=== PATIENT | male | born 1955 | race Caucasian/White ===

== ENCOUNTER 2020-04-24 10:19 | Outpatient (REF) | payer OTHER, SELFPAY ==
[2020-04-24 14:43] LABS: Alanine Aminotransferase 35 U/L (0-40); Anion Gap 15 (12-20); Blood Urea Nitrogen 31 mg/dL (9-16); Carbon Dioxide 25 mmol/L (22-29); Chloride 106 mmol/L (96-108); Estimated Glomerular Filt Rate 52; Potassium 4.6 mmol/L (3.3-5.1); Sodium 141 mmol/L (135-145)
== END 2020-04-24 10:20 | disposition home or self-care (01) ==
LOC: HO.10HDL 10:19
PROVIDERS: Visit Provider Family Medicine
DX: I10 Essential (primary) hypertension (principal)
CPT/HCPCS: 36415; 80051; 82550; 82565; 84460; 84520

== ENCOUNTER 2021-01-28 09:24 | Outpatient (REF) | payer OTHER, SELFPAY ==
[2021-01-28 10:55] LABS: Alanine Aminotransferase 42 U/L (0-40); Anion Gap 12 (12-20); Blood Urea Nitrogen 25 mg/dL (9-16); Carbon Dioxide 24 mmol/L (22-29); Chloride 106 mmol/L (96-108); Estimated Glomerular Filt Rate 55; Potassium 4.2 mmol/L (3.3-5.1); Sodium 138 mmol/L (135-145)
[2021-01-28 11:05] LABS: Prostate Specific Antigen Scr 3.53 ng/mL (<0.05-4.0)
== END 2021-01-28 09:25 | disposition home or self-care (01) ==
LOC: HO.10HDL 09:24
PROVIDERS: Student in an Organized Health Care Education/Training Program; Visit Provider Family Medicine
DX: Z12.5 Encounter for screening for malignant neoplasm of prostate (principal); I10 Essential (primary) hypertension; E78.00 Pure hypercholesterolemia, unspecified; R35.1 Nocturia; Z79.899 Other long term (current) drug therapy
CPT/HCPCS: 36415; 80051; 82550; 82565; 84153; 84460; 84520

== ENCOUNTER 2021-08-08 08:10 | Outpatient (REF) | payer OTHER, SELFPAY ==
[2021-08-08 09:07] LABS: Anion Gap 12 (12-20); Blood Urea Nitrogen 32 mg/dL (9-16); Carbon Dioxide 23 mmol/L (22-29); Chloride 105 mmol/L (96-108); Estimated Glomerular Filt Rate 45; Potassium 4.4 mmol/L (3.3-5.1); Sodium 136 mmol/L (135-145)
== END 2021-08-08 08:11 | disposition home or self-care (01) ==
LOC: HO.LAB 08:10
PROVIDERS: PCP Family Medicine; Visit Provider Family Medicine
DX: I10 Essential (primary) hypertension (principal)
CPT/HCPCS: 36415; 80051; 82565; 84520

== ENCOUNTER 2021-11-19 08:56 | Outpatient (REF) | payer OTHER, SELFPAY ==
[2021-11-19 10:46] LABS: Alanine Aminotransferase 35 U/L (0-40); Albumin Level 4.4 g/dL (3.5-5.0); Alkaline Phosphatase 67 U/L (39-117); Aspartate Amino Transferase 21 U/L (5-37); Bilirubin Direct 0.3 mg/dL (0.0-0.5); Bilirubin Total 0.7 mg/dL (0.0-1.0); Blood Urea Nitrogen 27 mg/dL (9-16); Estimated Glomerular Filt Rate 54; Glucose Fasting 118 mg/dL (60-99); Total Protein 8.1 g/dL (6.5-8.0)
== END 2021-11-19 08:57 | disposition home or self-care (01) ==
LOC: HO.10HDL 08:56
PROVIDERS: Visit Provider Family Medicine
DX: I10 Essential (primary) hypertension (principal); E78.00 Pure hypercholesterolemia, unspecified; R73.9 Hyperglycemia, unspecified; Z79.899 Other long term (current) drug therapy
CPT/HCPCS: 36415; 80076; 82550; 82565; 82947; 84520

== ENCOUNTER 2022-06-17 09:56 | Outpatient (REF) | payer MEDICARE, OTHER, SELFPAY ==
[2022-06-17 14:07] LABS: Estimated Average Glucose 120 mg/dL; Hemoglobin A1c % 5.8 %
[2022-06-17 14:25] LABS: Alanine Aminotransferase 32 U/L (0-40); Anion Gap 14 (12-20); Aspartate Amino Transferase 19 U/L (5-37); Blood Urea Nitrogen 28 mg/dL (9-16); Carbon Dioxide 23 mmol/L (22-29); Chloride 108 mmol/L (96-108); Estimated Glomerular Filt Rate 45; Glucose Fasting 106 mg/dL (60-99); Potassium 4.7 mmol/L (3.3-5.1); Sodium 140 mmol/L (135-145)
== END 2022-06-17 09:57 | disposition home or self-care (01) ==
LOC: HO.10HDL 09:56
PROVIDERS: Visit Provider Family Medicine
DX: I10 Essential (primary) hypertension (principal); E78.00 Pure hypercholesterolemia, unspecified; R73.9 Hyperglycemia, unspecified; Z79.899 Other long term (current) drug therapy
CPT/HCPCS: 36415; 80051; 82550; 82565; 82947; 83036; 84450; 84460; 84520

== ENCOUNTER 2023-01-19 09:09 | Outpatient (REF) | payer MEDICARE, OTHER, SELFPAY ==
[2023-01-19 10:51] LABS: Anion Gap 12 (12-20); Blood Urea Nitrogen 25 mg/dL (9-16); Carbon Dioxide 23 mmol/L (22-29); Chloride 105 mmol/L (96-108); Estimated Glomerular Filt Rate 56; Potassium 3.8 mmol/L (3.3-5.1); Sodium 136 mmol/L (135-145)
== END 2023-01-19 09:10 | disposition home or self-care (01) ==
LOC: HO.10HDL 09:09
PROVIDERS: Visit Provider Family Medicine
DX: I10 Essential (primary) hypertension (principal)
CPT/HCPCS: 36415; 80051; 82565; 84520

== ENCOUNTER 2023-07-28 08:49 | Outpatient (REF) | payer MEDICARE, OTHER, SELFPAY ==
[2023-07-28 12:22] LABS: Alanine Aminotransferase 28 U/L (0-40); Anion Gap 15 (12-20); Aspartate Amino Transferase 16 U/L (5-37); Blood Urea Nitrogen 23 mg/dL (9-16); Carbon Dioxide 18 mmol/L (22-29); Chloride 108 mmol/L (96-108); Estimated Glomerular Filt Rate 57; Sodium 137 mmol/L (135-145)
== END 2023-07-28 08:50 | disposition home or self-care (01) ==
LOC: HO.10HDL 08:49
PROVIDERS: Visit Provider Family Medicine
DX: I10 Essential (primary) hypertension (principal); E78.00 Pure hypercholesterolemia, unspecified; Z79.02 Long term (current) use of antithrombotics/antiplatelets
CPT/HCPCS: 36415; 80051; 82550; 82565; 84450; 84460; 84520

== ENCOUNTER 2024-02-01 09:42 | Outpatient (REF) | payer MEDICARE, OTHER, SELFPAY ==
[2024-02-01 11:22] LABS: Anion Gap 12 (12-20); Blood Urea Nitrogen 25 mg/dL (9-16); Carbon Dioxide 24 mmol/L (22-29); Chloride 106 mmol/L (96-108); Estimated Glomerular Filt Rate 46; Potassium 4.3 mmol/L (3.3-5.1); Sodium 138 mmol/L (135-145)
== END 2024-02-01 09:43 | disposition home or self-care (01) ==
LOC: HO.10HDL 09:42
PROVIDERS: Visit Provider Family Medicine
DX: I10 Essential (primary) hypertension (principal)
CPT/HCPCS: 36415; 80051; 82565; 84520

== ENCOUNTER 2024-07-18 09:17 | Outpatient (REF) | payer MEDICARE, OTHER, SELFPAY ==
[2024-07-18 10:24] LABS: Alanine Aminotransferase 35 U/L (0-40); Anion Gap 13 (12-20); Aspartate Amino Transferase 24 U/L (5-37); Blood Urea Nitrogen 30 mg/dL (9-16); Carbon Dioxide 20 mmol/L (22-29); Chloride 111 mmol/L (96-108); Cholesterol 166 mg/dL (<200); Estimated Glomerular Filt Rate 47; Glucose Fasting 115 mg/dL (60-99); HDL Cholesterol 55 mg/dL (>40); LDL Cholesterol Calculated 94 mg/dL (<100); Potassium 4.1 mmol/L (3.3-5.1); Sodium 140 mmol/L (135-145); Triglycerides 86 mg/dL (<150)
== END 2024-07-18 09:18 | disposition home or self-care (01) ==
LOC: HO.10HDL 09:17
PROVIDERS: Visit Provider Family Medicine
DX: I12.9 Hypertensive chronic kidney disease with stage 1 through stage 4 chronic kidney disease, or unspecified chronic kidney disease (principal); N18.30 Chronic kidney disease, stage 3 unspecified; Z83.3 Family history of diabetes mellitus; E78.00 Pure hypercholesterolemia, unspecified; Z79.899 Other long term (current) drug therapy
CPT/HCPCS: 36415; 80051; 80061; 82550; 82565; 82947; 84450; 84460; 84520

== ENCOUNTER 2024-12-06 09:38 | Outpatient (AMB) | payer MEDICARE, OTHER, SELFPAY ==
--- NOTE | 2024-12-06 09:40 | MHC.PC.OV ---
Vital Signs 12/06/24 09:46 Height 5 ft 7 in Weight 190 lb BMI 29.8 BP 126/72 Blood Pressure Location Rt brachial Position Sitting Respiration 18 Pulse 82 Pulse Source Pulse Oximeter Temp 97.1 F Temp Source Temporal Artery Scan Pulse Oximetry (%) 96 Oxygen Delivery Method Room Air Intake Visit Reasons: 4 Month F/U / Dr Hauser Feather Shaper Required: No Accompanied by: Self / Same As Patient Allergies Penicillins Allergy (Intermediate, Verified 12/06/24 09:43) Rash Medication List - Last Reconciled 12/06/24 by David Murray MD atorvastatin 10 mg PO DAILY coenzyme Q10 (Co Q-10) 10 mg PO TID hydrochlorothiazide 12.5 mg PO DAILY lisinopril 30 mg PO DAILY nifedipine ER 30 mg PO DAILY tamsulosin mg PO Tobacco use date assessed: 12/06/24 Fall risk assessment: 1 Fall in past year Last assessed Fall Risk: 12/06/24 Dental Screening Dental Screen Date: 12/06/24 Did you have a dental visit in the last 12 months?: Yes Did you have a dental problem in the last 6 months where you did not have access to dental care?: No Was dental information given to patient?: Patient has dentist HPI HPI Comments History of Present Illness Details The patient is a 69-year-old male presenting for a wellness and chronic disease management visit. He has a history of benign prostatic hyperplasia, for which he is taking tamsulosin. This medication has been part of his routine management, and he reports good control of symptoms without any current complaints related to this condition. The patient also has essential hypertension, which was diagnosed approximately 20 years ago after he experienced vision loss, leading to the discovery of high blood pressure. Initially undiagnosed, the hypertension progressed to a severity that impaired his vision temporarily and contributed to reduced kidney function. He is currently managing his blood pressure with nifedipine, lisinopril, and hydrochlorothiazide. He reports stable blood pressure readings at home, ranging from 103 to 127 mmHg systolic, with no symptoms of dizziness or fatigue. The patient's chronic kidney disease is in stage 3A, a result of long-standing hypertension. There are no new symptoms reported, but due to the previous kidney impairment, his kidney function is being monitored closely. His last blood work in June confirmed CKD stage 3A. He has not been seeing a student ambassador since 2007, opting to manage this with his primary care physician. He has no history of surgeries. Additionally, the patient has hypercholesterolemia managed with atorvastatin 10 mg daily. There are no new concerns with cholesterol management reported. There is a family history of prostate cancer in his father, and his mother had diabetes. The patient himself denies any previous smoking history and consumes alcohol moderately, about three drinks per week. He also denied any recreational drug use and stated no known allergies. Medical History: - Benign Prostatic Hyperplasia - Essential Hypertension - Chronic Kidney Disease Stage 3A - Hypercholesterolemia - Family history of prostate cancer in the father - Undiagnosed hypertension with vision loss approximately 20 years ago Surgical History: - None reported Medications: - Tamsulosin for Benign Prostatic Hyperplasia - Nifedipine 30 mg daily for Hypertension - Lisinopril 30 mg daily for Hypertension - Hydrochlorothiazide for Hypertension - Atorvastatin 10 mg daily for Hypercholesterolemia Family History: - Prostate cancer in father - Diabetes in mother - No history of heart disease reported in the family Diagnostic Results: - Labs: Kidney function tests from June show CKD stage 3A - Colonoscopy performed in 2019 with a follow-up recommended in 2030 Social: - Lives with spouse in [place] - Alcohol consumption: Three drinks per week - No tobacco or recreational drug use - Regular home blood pressure monitoring with stable results [facility] Medical History (Updated 12/06/24 @ 09:58 by David Murray MD) BPH (benign prostatic hyperplasia) CKD (chronic kidney disease) stage 3, GFR 30-59 ml/min Hyperlipidemia Hypertension Surgical History (Updated 12/05/24 @ 16:03 by Christine Ni) History of colonoscopy (~11/23/19) Social History Housing: House Patient Tobacco Use Status: Never used Tobacco e-Cigarette/Vaping Use: Never Used service: No Current occupational status: retired Questionnaire PHQ-9 Over the last 2 weeks, how often have you been bothered by any of the following problems? 1. Little interest or pleasure in doing things: not at all 2. Feeling down, depressed, or hopeless: not at all 3. Trouble falling or staying asleep, or sleeping too much: not at all 4. Feeling tired or having little energy: not at all 5. Poor appetite or overeating: not at all 6. Feeling bad about yourself - or that you are a failure or have let yourself or your family down: not at all 7. Trouble concentrating on things, such as reading the newspaper or watching television: not at all 8. Moving or speaking so slowly that other people could have noticed. Or the opposite - being so fidgety or restless that you have been moving around a lot more than usual: not at all 9. Thoughts that you would be better off or of hurting yourself in some way: not at all Total score: 0 Depression Screening Interpretation: Negative Depression Screening Done: Yes 93011 - PHQ-9 Billing: Yes Source: Developed by Drs. Dwain Ferro, Saige Reza, Eliezer Vidal and colleagues, with an educational martina from [employer]. Thrive Questionnaire Date Thrive assessed: 12/06/24 I am a: Patient What is your living situation today?: I have a steady place to live Within the past 12 months, did the food you bought not last and you didn't have the money to get more?: Never true Within the past 12 months, did you worry whether your food would run out before you got money to buy more?: Never true Do you have trouble paying for medicines?: No Do you have trouble getting transportation to medical appointments?: No Do you have trouble paying your heating and electricity bill?: No Do you have trouble taking care of your child, family member or friend?: No Do you have trouble with day-to-day activities such as bathing, preparing meals, shopping, managing finances, etc.?: No Are you currently unemployed and looking for a job?: No Are you interested in more education?: No THRIVE Score: 0 AUDIT C Alcohol Use Questionnaire (AUDIT-C) 1. How often do you have a drink containing alcohol?: 2-3 times a week 2. How many drinks containing alcohol do you have on a typical day when you are drinking?: 1 or 2 Total Score: 3 Score Reviewed/Action Taken: Yes KENDALL-7 AMB Questionnaire KENDALL-7 Date KENDALL - 7 assessed: 12/06/24 Feeling nervous, anxious, or on edge: 0 = Not at all Not being able to stop or control worryin = Not at all Worrying too much about different things: 0 = Not at all Trouble relaxin = Not at all Being so restless that it is hard to sit still: 0 = Not at all Becoming easily annoyed or irritable: 0 = Not at all Feeling afraid as if something awful might happen: 0 = Not at all Total KENDALL-7 score (0-4 normal; 5-9 mild; 10-14 moderate; 15-21 severe): 0 Source: Developed by Drs. Dwain Ferro, Saige Reza, Eliezer Vidal and colleagues, with an educational matrina from [employer]. KENDALL-7 Assessment Billing KENDALL-7 Assessment Tool: KENDALL-7 Assessment 93235 Review of Systems Const Details: - General: Denies feeling down, low, or depressed. - Cardiovascular: Denies chest pain or discomfort. - Respiratory: Denies any respiratory complaints. - Gastrointestinal: Denies current symptoms. - Renal: Denies urinary symptoms. - Neurological: Denies cognitive or mood changes. - Psychiatric: Denies any feelings of anxiety or thoughts of self-harm. All systems reviewed & are unremarkable except as reviewed in HPI and above Physical exam (Primary Care) Vital Signs: Last Vital Signs Temp 97.1 F 12/06/24 09:46 Pulse 82 12/06/24 09:46 Resp 18 12/06/24 09:46 BP 126/72 12/06/24 09:46 Pulse Ox 96 12/06/24 09:46 Oxygen Delivery Method Room Air 12/06/24 09:46 BMI result Body Mass Index 29.8 Tobacco/Smoking Status: Tobacco use Status Tobacco use date assessed 12/06/24 12/06/24 09:48 Patient Tobacco Use Status Never used Tobacco 12/06/24 09:48 e-Cigarette/Vaping Use Never Used 12/06/24 09:48 PHQ-9: PHQ-9 Score PHQ-9: Total score 0 12/06/24 09:55 Depression Screening Interpretation: Negative Thrive Assessment: Date of Thrive Assessment Date Thrive assessed 12/06/24 12/06/24 09:55 Const Other: General: +Alert and oriented, Well nourished, No acute distress. Eye: Pupils are equal, round and reactive to light, Intact accommodation, Extraocular movements are intact, Normal conjunctiva, Vision unchanged. HENT: Normocephalic, Atraumatic, Tympanic membranes are clear, Normal hearing, Oral mucosa is moist, No pharyngeal erythema, Ear canals patent. Respiratory: Lungs CTA bilaterally, No wheeze, Respirations are non-labored. Cardiovascular: Regular rate, Regular rhythm, S1 auscultated, S2 auscultated, No murmur, Good pulses equal in all extremities, Normal peripheral perfusion, No edema. Gastrointestinal: Soft, Non-tender, Non-distended, Normal bowel sounds, No organomegaly. Musculoskeletal: Normal range of motion, Normal strength, No tenderness, No swelling, No deformity, Normal gait. Integumentary: Warm, Dry, [place], Intact, Skin lesion noted on both arms, likely insect bites. Neurologic: Alert, Oriented, Normal sensory, Normal motor function, No focal defects, Cranial Nerves II-XII are grossly intact, Normal deep tendon reflexes. Psychiatric: Cooperative, Appropriate mood & affect, Normal judgment, No depression or anxiety reported. Coding Level of Care Code New Pt Level 4 (16398) New Pt Prev Care >65yr (91187) Diagnoses Hypertension, unspecified type I10 Hypertension type: unspecified Hyperlipidemia, unspecified hyperlipidemia type E78.5 Hyperlipidemia type: unspecified Stage 3a chronic kidney disease N18.31 Chronic kidney disease stage 3 subtype: stage 3a (GFR 45-59) Benign prostatic hyperplasia, unspecified whether lower urinary tract symptoms present N40.0 Lower urinary tract symptom presence: unspecified whether lower urinary tract symptoms present Additional Codes KENDALL-7 Assessment Billing - KENDALL-7 Assessment Tool: KENDALL-7 Assessment 34369 ([id number]) PHQ-9 - 90205 - PHQ-9 Billing: Yes ([id number]) Assessment & Plan Assessment & Plan (1) Hypertension: Comment: - Maintain current antihypertensive regimen: nifedipine, lisinopril, and hydrochlorothiazide. - Monitor blood pressure regularly at home, noting consistent readings between 103-127 mmHg systolic. Code(s): I10 - Essential (primary) hypertension Category: Medical Qualifiers: Hypertension type: unspecified Qualified Code(s): I10 - Essential (primary) hypertension (2) Hyperlipidemia: Comment: - Continue atorvastatin 10 mg daily. - Reassess cholesterol levels with current blood work. Code(s): E78.5 - Hyperlipidemia, unspecified Category: Medical Qualifiers: Hyperlipidemia type: unspecified Qualified Code(s): E78.5 - Hyperlipidemia, unspecified (3) CKD (chronic kidney disease) stage 3, GFR 30-59 ml/min: Comment: - Regular monitoring of kidney function with repeat blood work. - Avoid NSAID use to prevent further kidney damage. Code(s): N18.30 - Chronic kidney disease, stage 3 unspecified Category: Medical Qualifiers: Chronic kidney disease stage 3 subtype: stage 3a (GFR 45-59) Qualified Code(s): N18.31 - Chronic kidney disease, stage 3a (4) BPH (benign prostatic hyperplasia): Comment: - Continue tamsulosin for symptom management. - No adjustments needed unless symptoms change. Code(s): N40.0 - Benign prostatic hyperplasia without lower urinary tract symptoms Category: Medical Qualifiers: Lower urinary tract symptom presence: unspecified whether lower urinary tract symptoms present Qualified Code(s): N40.0 - Benign prostatic hyperplasia without lower urinary tract symptoms Plan: Health Maintenance: - Screening blood work for cholesterol, diabetes, kidney function, hepatitis, HIV, and syphilis - Colonoscopy last performed in 2019, next recommended in 2030 Plan During today's visit, we reviewed the patient's chronic conditions, including benign prostatic hyperplasia, essential hypertension, chronic kidney disease, and hypercholesterolemia. I confirmed continued management with tamsulosin for benign prostatic hyperplasia, and there are no current changes required. Blood pressure control appears stable with current medications, and home monitoring shows good readings. Importance of avoiding NSAIDs to preserve kidney function was stressed. Cholesterol levels will be evaluated with current lab work, and adjustments to atorvastatin may be considered if needed. The patient understands these management strategies, and we discussed returning for follow-up should any symptoms arise. Orders: Orders Comprehensive Met. Panel Today E78.5 - Hyperlipidemia, unspecified, I10 - Essential (primary) hypertension Hemoglobin A1c Today E78.5 - Hyperlipidemia, unspecified, I10 - Essential (primary) hypertension Hepatitis A,B,C Profile Today E78.5 - Hyperlipidemia, unspecified, I10 - Essential (primary) hypertension HIV Ab/Ag Today E78.5 - Hyperlipidemia, unspecified, I10 - Essential (primary) hypertension Lipid Panel Today E78.5 - Hyperlipidemia, unspecified, I10 - Essential (primary) hypertension Complete Blood Count Auto Diff Today E78.5 - Hyperlipidemia, unspecified, I10 - Essential (primary) hypertension Syphilis Screen Today E78.5 - Hyperlipidemia, unspecified, I10 - Essential (primary) hypertension TSH reflex Free T4 Today E78.5 - Hyperlipidemia, unspecified, I10 - Essential (primary) hypertension Vitamin D 25-OH Total Today E78.5 - Hyperlipidemia, unspecified, I10 - Essential (primary) hypertension Patient Instructions: - Continue current medications as prescribed. - Monitor blood pressure regularly at home. - Avoid using NSAIDs like ibuprofen to protect kidney function; use Tylenol if needed for pain relief. - Return for routine blood work to check cholesterol, kidney function, and other health markers. - Report any new symptoms or health changes promptly. - Maintain current healthy lifestyle and activity level.
[2024-12-06 09:46] VITALS: BP 126/72; PULSE 82; RESP 18; TEMP 36.2; O2SAT 96; BMI 29.8
--- OUTSIDE RECORDS SUMMARY | 2024-12-06 11:18 | XMS_ITS | Patient Health Record ---
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 Name Role Phone Murtaza (RETIRED) Dhaval JEFFERSON Primary Care Provider Unavailable Jefferson Lowry Jr Unavailable [phone] Allergies Allergen (clinical drug ingredient) Drug/Non Drug Allergy documented on EMR Reaction Allergy Type Onset Date Status penicillamine Penicillamine Unknown Drug Allergy Active Reason For Referral No Information Medications Medication SIG (Take, Route, Frequency, Duration) Notes Start Date End Date Status Atorvastatin Calcium 10 MG 1 tablet Oral ly Once a day for 30 day(s) Active Lisinopril 30 MG 1 tablet Orally Once a day for 30 day(s) Active NIFEdipine ER 30 MG 1 tablet on an empty stomach Orally Once a day for 30 day(s) Active hydroCHLOROthiazide 12.5 MG 1 capsule in the morning Orally Once a day for 30 day(s) Active MiraLax (colon prep) 8.3 oun ce ((238) grams mixed with Gatorade or Crystal Light orally begin at 5:00 p.m. the day before the procedure for 1 day 05/31/2019 Active Fish Oil 1000 MG 1 capsule Orally Onc e a day for 30 day(s) Active Immunizations Vaccine Route Administration Date Status Comme nts Influenza Unknown 01/19/2019 Administered Social History Tobacco Use: Social History Observation Description Date Details (start date - stop date) Never Smoker NA - NA Tobacco Use/Smoking Question Answer Notes Patient is a nonsmoker Alcohol Screen Question Answer Notes Did you have a drink contain ing alcohol in the past year? Yes How often did you have a dri nk containing alcohol in the past year? 2 to 3 times a week (3 points) How many drinks did you have on a typical day when you were drinking in the past year? 1 or 2 drinks (0 point) How often did you have 6 or more drinks on one occasion in the past year? Never (0 point) Points 3 Interpretation Negative Problems Problem Type SNOMED Code ICD Code Onset Dates Problem Status W/U Status Risk Notes Problem 822872129 Colon cancer screening (Z12.11) Active confirmed Problem 947477686 Encounter for other preprocedural examination (Z01.818) Active confirmed Problem 278890918 Long-term curren t use of high risk medication other than anticoagulant (Z79.899) Active confirmed Plan Of Treatment Future Test Test Name Order Date COLONOSCOPY 05/31/2019 Insurance Providers Payer Name Payer Address Payer Phone Subscriber Number Group Number Insured Name Patient Relationship to Insured Coverage Start Date Coverage End Date [employer] [address] [place] [phone] [id number] [employer] Self - patient is the insured Medical (General) History Medical History History ICD Code hypertension slight kidney ds due to past elevated bl oodpressure elevated cholesterol Surgical History Surgery Date(Month/Year) tonsillectomy age 6 exploritory sugery in kidneys 2004
== END 2024-12-06 09:58 | disposition home or self-care (01) ==
LOC: HO.HMCHD 09:39
PROVIDERS: PCP Student in an Organized Health Care Education/Training Program; Visit Provider Student in an Organized Health Care Education/Training Program
DX: I12.9 Hypertensive chronic kidney disease with stage 1 through stage 4 chronic kidney disease, or unspecified chronic kidney disease (principal); E78.5 Hyperlipidemia, unspecified; N18.31 Chronic kidney disease, stage 3a; N40.0 Benign prostatic hyperplasia without lower urinary tract symptoms

== ENCOUNTER → 2024-12-06 09:38 | Outpatient (BNVA) | payer MEDICARE, OTHER, SELFPAY | PROVIDERS: Visit Provider Student in an Organized Health Care Education/Training Program | DX: I12.9 Hypertensive chronic kidney disease with stage 1 through stage 4 chronic kidney disease, or unspecified chronic kidney disease (principal); N18.31 Chronic kidney disease, stage 3a; E78.5 Hyperlipidemia, unspecified; N40.0 Benign prostatic hyperplasia without lower urinary tract symptoms; Z79.899 Other long term (current) drug therapy; Z13.31 Encounter for screening for depression; Z13.39 Encounter for screening examination for other mental health and behavioral disorders | CPT/HCPCS: 96127; 99202 ==

== ENCOUNTER 2024-12-06 10:08 | Outpatient (REF) | payer MEDICARE, OTHER, SELFPAY ==
[2024-12-06 13:36] LABS: MANUAL DIFF FLAG NO
[2024-12-06 13:42] LABS: Hematocrit 48.0 % (42.0-52.0); Hemoglobin 16.0 g/dl (14.0-18.0); Imm Gran Abs Auto 0.01 X10*3/uL (0.00-0.03); Imm Gran Pct Auto 0.2 % (0.0-0.4); Lymphocytes Absolute Auto 1.7 X10*3/uL (1.2-4.9); Mean Corpuscular HGB Conc 33.3 g/dl (31.0-36.0); Mean Corpuscular Hemoglobin 29.1 pg (27.0-33.0); Mean Corpuscular Volume 87.3 fL (80.0-98.0); NRBC Abs Auto 0.000 X10*3/uL (0.0-0.012); NRBC Pct Auto 0.0 /100WBC (0.0-0.2); Platelet Count 345 X10*3/uL (160-400); Red Blood Count 5.50 X10*6/uL (4.60-5.80); White Blood Count 4.7 X10*3/uL (4.8-10.8)
[2024-12-06 13:50] LABS: Total Hemoglobin (HGBA1C) 4021.1143 umol/L
[2024-12-06 14:09] LABS: Alanine Aminotransferase 33 U/L (0-40); Albumin Level 4.7 g/dL (3.5-5.0); Alkaline Phosphatase 69 U/L (39-117); Anion Gap 14 (12-20); Aspartate Amino Transferase 23 U/L (5-37); Blood Urea Nitrogen 28 mg/dL (9-16); Calcium 9.6 mg/dL (8.4-10.2); Carbon Dioxide 24 mmol/L (22-29); Chloride 105 mmol/L (96-108); Cholesterol 158 mg/dL (<200); Estimated Glomerular Filt Rate 50; HDL Cholesterol 49 mg/dL (>40); Potassium 4.0 mmol/L (3.3-5.1); Sodium 139 mmol/L (135-145); Total Protein 8.5 g/dL (6.5-8.0); Triglycerides 96 mg/dL (<150)
[2024-12-07 09:20] LABS: HBS Num1 0.07 mIU/mL (0-7.99); HBc Num1 0.12 S/CO (0.00-0.79); HBsAGNum1 0.42 S/CO (0.00-0.99); HIV Num 1 0.05 S/CO (0.00-0.99); Hepatitis A Antibody IgM 0.27 Index (0-0.79); Hepatitis B Surface Antigen Negative (Negative); ~HepC Num1 0.18 S/CO (0.00-0.79); ~Hepatitis A Antibody IgM Nonreactive (Nonreactive); ~Hepatitis B Surface Antibody NONREACTIVE (Nonreactive); ~Hepatitis C Antibody Nonreactive (Nonreactive)
[2024-12-07 09:37] LABS: Syphilis Screen Nonreactive (Nonreactive)
== END 2024-12-06 10:09 | disposition home or self-care (01) ==
LOC: HO.10HDL 10:08
PROVIDERS: Visit Provider Student in an Organized Health Care Education/Training Program
DX: I10 Essential (primary) hypertension (principal); E78.5 Hyperlipidemia, unspecified; Z13.1 Encounter for screening for diabetes mellitus; Z11.4 Encounter for screening for human immunodeficiency virus [HIV]
CPT/HCPCS: 36415; 80053; 80061; 82306; 83036; 84443; 85025; 86704; 86706; 86709; 86780; 86803; 87340; 87389